=== PATIENT | female | born 1975 ===

== ENCOUNTER 2019-11-27 21:24 | Emergency (ER) | payer SELFPAY ==
--- NOTE | 2019-11-27 21:57 | EDM.PDOC ---
ED HPI GENERAL MEDICAL PROBLEM - General Chief Complaint: General Stated Complaint: HIGH BLOOD PRESSURE , SOB Time Seen by Provider: 11/27/19 21:45 Source of Information: Reports: Patient History Limitations: Reports: No Limitations - History of Present Illness INITIAL COMMENTS - FREE TEXT/NARRATIVE: States that she wants medication for high blood pressure but does not know the medication name. Patient's daughter states that she is on atorvastatin and no other medication. Patient has no symptoms at this time. Patient is new to the area from [place]: Today Improves with: Reports: None Worsens with: Reports: None - Related Data Allergies Allergy/AdvReac Type Severity Reaction Status Date / Time No Known Allergies Allergy Verified 11/27/19 21:47 Home Meds: Home Meds atorvaSTATin [Lipitor] 40 mg PO DAILY 11/27/19 [History] Past Medical History Cardiovascular History: Reports: Hypertension Psychiatric History: Reports: Addiction Social & Family History - Family History Family Medical History: Noncontributory - Tobacco Use Smoking Status *Q: Never Smoker - Recreational Drug Use Recreational Drug Use: Yes Recreational Drug Type: Reports: Methamphetamine Recreational Drug Use Frequency: Daily ED ROS GENERAL - Review of Systems Review Of Systems: See Below Constitutional: Reports: No Symptoms HEENT: Reports: No Symptoms Respiratory: Reports: No Symptoms Cardiovascular: Reports: No Symptoms Endocrine: Reports: No Symptoms GI/Abdominal: Reports: No Symptoms : Reports: No Symptoms Musculoskeletal: Reports: No Symptoms Skin: Reports: No Symptoms Neurological: Reports: No Symptoms Psychiatric: Reports: No Symptoms Hematologic/Lymphatic: Reports: No Symptoms Immunologic: Reports: No Symptoms ED EXAM, GENERAL - Physical Exam Exam: See Below General Appearance: Alert, WD/WN, No Apparent Distress Eye Exam: Bilateral Eye: Normal Fundi, Normal Inspection Ears: Normal External Exam, Normal Canal, Hearing Grossly Normal, Normal TMs Nose: Normal Inspection, Normal Mucosa Throat/Mouth: Normal Inspection, Normal Lips, Normal Teeth Head: Atraumatic, Normocephalic Neck: Normal Inspection, Supple, Non-Tender, Full Range of Motion Respiratory/Chest: No Respiratory Distress, Lungs Clear, Normal Breath Sounds, No Accessory Muscle Use, Chest Non-Tender Cardiovascular: Normal Peripheral Pulses, Regular Rate, Rhythm, No Edema, No Gallop, No JVD, No Murmur, No Rub GI/Abdominal: Normal Bowel Sounds, Soft, Non-Tender (Female) Exam: Deferred Rectal (Female) Exam: Deferred Neurological: Alert, Oriented, CN II-XII Intact, Normal Cognition, Normal Gait, Normal Reflexes, No Motor/Sensory Deficits Psychiatric: Normal Affect, Normal Mood Skin Exam: Warm, Dry, Intact, Normal Color, No Rash Lymphatic: No Adenopathy Course - Vital Signs Text/Narrative:: Presents to the emergency room wanting medical care for her high blood pressure. Daughter states that she is not on high blood pressure medication and patient does not know medication. Patient's blood pressure is 160/100 remote history of using illicit drugs. Patient is asymptomatic as far as high blood pressure is concerned patient has no headache no chest pain no visual problems. Will be discharged to follow-up with clinic to have her blood pressure monitored and perhaps be placed on high blood pressure medication at this time no emergency medical issue is noted. Last Recorded V/S: Last Vital Signs Temp 97.1 F 11/27/19 21:43 Pulse 95 11/27/19 21:43 Resp 16 11/27/19 21:43 BP 164/104 H 11/27/19 21:43 Pulse Ox 100 11/27/19 21:43 Departure - Departure Time of Disposition: 21:55 Disposition: Home, Self-Care 01 Condition: Good Clinical Impression: Hypertension screening, Drug usage, Drug abuse - Discharge Information Instructions: Hypertension, Adult, [id number], Supporting Someone With Substance Use Disorder Referrals: PCP,None [Primary Care Provider] - Additional Instructions: Patient needs to follow-up with family medicine clinic to determine if patient needs high blood pressure medication. The patient has been instructed to stop using illicit drugs. Sepsis Event Note - Evaluation Sepsis Screening Result: No Definite Risk - Focused Exam Vital Signs: Vital Signs Temp Pulse Resp BP Pulse Ox 11/27/19 21:43 97.1 F 95 16 164/104 H 100 Date Exam was Performed: 11/27/19 Time Exam was Performed: 21:52
== END 2019-11-27 22:20 | disposition home or self-care (01) ==
LOC: MW.ED 21:24
CPT/HCPCS: 99282